=== PATIENT | female | born 1995 | race Caucasian/White ===

== ENCOUNTER 2020-01-06 21:01 | Emergency (ER) | payer BC ==
[~2020-01-06] VITALS: Ht 170.2 cm; Wt 65.8 kg
--- NOTE | 2020-01-06 21:34 | Emergency Room Report ---
History of Present Illness General Chief Complaint: Vaginal Source: Patient Present Illness HPI This is a 24-year-old female with history of substance abuse and currently in rehab. She presents with chief complaint abdominal pain and vaginal bleeding. She has been having abdominal pain bloating for the last 3 to 4 days. Low- grade fever. Also with several episode of vomiting today. No diarrhea. She says she passed 3-4 large clots with vaginal bleeding. Bleeding resolved now. Last sexual activity was about a month and a half ago. She said her menstruation is irregular since she had an IUD in. She went to an urgent care today and had blood test but results still pending. Patient complained of cramping pain that is 7 out of 10. Denies any dizziness or syncope. Denies any discharge or urinary complaint. Nothing made it better. Nothing made it worse. Allergies: Coded Allergies: AMOXICILLIN (Verified Allergy, Unknown, 01/06/20) PENICILLINS (Verified Allergy, Unknown, 01/06/20) PRAZOSIN (Verified Allergy, Unknown, 01/06/20) COVID-19 Screening Contact w/high risk pt: No Recent Travel to affected area: No Experienced COVID-19 symptoms?: No COVID-19 Testing performed [employer]: No Patient History Past Medical History: see triage record, old chart reviewed Past Surgical History: none Pertinent Family History: none Last Menstrual Period: 04/18 Now: Yes - unknown : 4 Para: 2 Nursing Documentation-[facility] Past Medical History: No History, Except For History Of Psychiatric Problem: Yes - bipolar; depression;anxiety; ptsd Review of Systems Constitutional: Reports: fever Eye: Denies: eye pain, blurred vision ENT: Denies: ear pain, nose congestion, throat swelling Respiratory: Denies: cough, shortness of breath Cardiovascular: Denies: chest pain, palpitations Gastrointestinal: Reports: abdominal pain, nausea, vomiting; Denies: diarrhea Genitourinary: Reports: vag bleed/dc Musculoskeletal: Denies: back pain, joint pain Skin: Denies: rash Neurological: Denies: headache, numbness Endocrine: Denies: increased thirst, increased urine Hematologic/Lymphatic: Denies: easy bruising All Other Systems: negative except mentioned in HPI Physical Exam Vital Signs Date Time Temp Pulse Resp B/P (MAP) Pulse Ox O2 Delivery O2 Flow Rate FiO2 6/8/20 21:08 98.2 122 18 108/71 (83) 99 Room Air Vitals with tachycardia Sp02 EP Interpretation: reviewed, normal General Appearance: well appearing, no apparent distress, alert Head: normocephalic, atraumatic Eyes: bilateral eye PERRL, bilateral eye EOMI ENT: hearing grossly normal, normal pharynx Neck: full range of motion, supple, no meningismus Respiratory: chest non-tender, lungs clear, normal breath sounds Cardiovascular #1: regular rate, rhythm, no murmur Gastrointestinal: normal bowel sounds, no mass, no organomegaly, no bruit, non- distended, tenderness - Mild, diffuse Musculoskeletal: back normal, normal range of motion, gait/station normal Psychiatric: mood/affect normal Medical Decision Making Diagnostic Impression: Primary Impression: Abdominal pain Qualified Codes: R10.84 - Generalized abdominal pain Additional Impression: Dysfunctional uterine bleeding ER Course Patient presents with abdominal pain. No evidence of an acute abdomen. No nausea or vomiting here. She tolerating p.o. intake here. She also has vaginal bleeding that resolved. No evidence of ectopic or miscarriage. is negative. Will discharge home. CT/MRI/US Diagnostic Results CT/MRI/US Diagnostic Results : Imaging Test Ordered: CT abdomen pelvis Impression Negative per radiologist Last Vital Signs Date Time Temp Pulse Resp B/P (MAP) Pulse Ox O2 Delivery O2 Flow Rate FiO2 01/06/20 21:08 98.2 122 18 108/71 (83) 99 Room Air Status: improved Disposition: HOME, SELF-CARE Condition: Stable Scripts Ondansetron (Zofran) 4 Mg Tablet 4 MG ORAL Q8H PRN for Nausea & Vomiting, #10 TAB 0 Refills Prov: Jakub James MD 01/06/20 Ibuprofen* (MOTRIN*) 600 Mg Tablet 600 MG ORAL Q6H PRN for For Pain, #30 TAB 0 Refills Prov: Jakub James MD 01/06/20 Referrals: NOT CHOSEN IPA/,REFERRING (PCP) Additional Instructions: Follow-up with your doctor in 7 days. Return if symptoms worsen. Jakub James MD Jan 06, 2020 21:34
[2020-01-06] MEDS ORDERED: Ketorolac 30mg Inj IV ONE (21:45)
[2020-01-06 22:02] VITALS: BP 108/71
[2020-01-06 22:21] LABS: APPEARANCE,URINE CLEAR; BILIRUBIN, URINE NEGATIVE (NEGATIVE); COLOR,URINE PALE YELLOW; GLUCOSE, URINE (UA) NEGATIVE (NEGATIVE); KETONES,URINE NEGATIVE (NEGATIVE); LEUKOCYTE ESTERASE ,URINE 1+ (NEGATIVE); NITRITE,URINE NEGATIVE (NEGATIVE); PH,URINE 5 (4.5-8.0); PROTEIN,URINE NEGATIVE (NEGATIVE); UROBILINOGEN,URINE NORMAL MG/DL (0.0-1.0)
[2020-01-06 22:27] LABS: BASOPHILS % (AUTO) 1.1 % (0.0-2.0); EOSINOPHILS % (AUTO) 2.1 % (0.0-3.0); HEMATOCRIT 40.7 % (37.0-47.0); HEMOGLOBIN 12.7 G/DL (12.0-16.0); LYMPHOCYTES % (AUTO) 24.2 % (20.0-45.0); MEAN CORPUSCULAR VOLUME 99 FL (80-99); MONOCYTES % (AUTO) 6.8 % (1.0-10.0); NEUTROPHILS % (AUTO) 65.9 % (45.0-75.0); PLATELET COUNT 349 K/UL (150-450); RED BLOOD COUNT 4.13 M/UL (4.20-5.40); RED CELL DISTRIBUTION WIDTH 12.6 % (11.6-14.8); WHITE BLOOD COUNT 11.2 K/UL (4.8-10.8)
[2020-01-06 22:36] LABS: ANION GAP 6 mmol/L (5-15); BLOOD UREA NITROGEN 17 mg/dL (7-18); CALCIUM 9.2 MG/DL (8.5-10.1); CARBON DIOXIDE 32 MMOL/L (21-32); CHLORIDE 103 MMOL/L (98-107); CREATININE 1.1 MG/DL (0.55-1.30); POTASSIUM 4.1 MMOL/L (3.5-5.1); SODIUM 141 MMOL/L (136-145)
[2020-01-06 22:41] LABS: ALANINE AMINOTRANSFERASE 47 U/L (12-78); ALBUMIN 3.9 G/DL (3.4-5.0); ALBUMIN/GLOBULIN RATIO 1.3 (1.0-2.7); ALKALINE PHOSPHATASE 81 U/L (46-116); ASPARTATE AMINO TRANSFERASE 24 U/L (15-37); BILIRUBIN,TOTAL 0.2 MG/DL (0.2-1.0)
--- NOTE | 2020-01-06 23:04 | Diagnostic Imaging Report ---
EXAM: CT Abdomen and Pelvis Without Intravenous Contrast CLINICAL HISTORY: Abdominal pain and cramping started today. Reports vomiting 8 times today, and passing 3/4 inch blood clots vaginally. No previous medical hx, psychiatric hx though TECHNIQUE: Axial computed tomography images of the abdomen and pelvis without intravenous contrast. CTDI is 4.7 mGy and DLP is 274.4 mGy-cm. One or more of the following dose reduction techniques were used: automated exposure control, adjustment of the mA and/or kV according to patient size, use of iterative reconstruction technique. Coronal and sagittal reconstructions are performed COMPARISON: No relevant prior studies available. FINDINGS: Lung bases: Unremarkable. No mass. No consolidation. ABDOMEN: Liver: Unremarkable. Gallbladder and bile ducts: Unremarkable. No calcified stones. No ductal dilation. Pancreas: Unremarkable. No ductal dilation. Spleen: Punctate granulomatous calcifications in the spleen Adrenals: Unremarkable. No mass. Kidneys and ureters: Unremarkable. No obstructing stones. No hydronephrosis. Stomach and bowel: Moderate amount of stool throughout the colon. No obstruction. No mucosal thickening. PELVIS: Appendix: No findings to suggest acute appendicitis. Bladder: Unremarkable. No stones. Reproductive: Anteverted uterus contains T-shaped IUD, in satisfactory position. ABDOMEN and PELVIS: Intraperitoneal space: Unremarkable. No free air. No significant fluid collection. Bones/joints: No acute fracture. No dislocation. Soft tissues: Unremarkable. Vasculature: Unremarkable. No abdominal aortic aneurysm. Lymph nodes: Unremarkable. No enlarged lymph nodes. IMPRESSION: No acute findings in the abdomen or pelvis.
[2020-01-06] MEDS ORDERED: IBUPROFEN600 M1 ORAL (23:29)
[2020-01-06] MEDS ORDERED: ZOFRAN4 MG ORAL (23:29)
[2020-01-06 23:35] VITALS: BP 108/71
== END 2020-01-06 23:35 | disposition home or self-care (01) ==
LOC: EMR 21:32
DX: R10.84 Generalized abdominal pain (principal); N93.8 Other specified abnormal uterine and vaginal bleeding; Z88.0 Allergy status to penicillin; Z88.8 Allergy status to other drugs, medicaments and biological substances; F31.9 Bipolar disorder, unspecified; F32.9 Major depressive disorder, single episode, unspecified; F41.9 Anxiety disorder, unspecified; R11.2 Nausea with vomiting, unspecified; R50.9 Fever, unspecified; Z97.5 Presence of (intrauterine) contraceptive device
CPT/HCPCS: 36415; 74176; 80053; 81003; 81025; 83690; 85025; 96361; 96374; 96375; 99284; J1885; J2405; J7030